=== PATIENT | male | born 1955 | race Native Hawaiian/Other Pacific Islander ===

== ENCOUNTER 2022-01-15 20:30 | Emergency (ER) | payer OTHER ==
[~2022-01-15] VITALS: Ht 180.3 cm; Wt 93.0 kg
[2022-01-15 21:07] VITALS: TEMP 100.3
[2022-01-15 21:33] LABS: POTASSIUM 4.2 mmol/L (3.6-5.2)
[2022-01-15 21:42] LABS: PLATELET COUNT 166 K/uL (142-355)
[2022-01-16 00:35] VITALS: BP 118/48
[2022-01-16] MEDS ORDERED: ELIQUIS5 MG PO (10:34)
[2022-01-16] MEDS ORDERED: DIVALPROEX500 M1 PO (10:34)
[2022-01-16] MEDS ORDERED: NEURONTIN 100M100 MG PO (10:35)
[2022-01-16] MEDS ORDERED: HALO5INJ3 IM (10:37)
[2022-01-16] MEDS ORDERED: HALO5TAB10 PO (10:39)
[2022-01-16] MEDS ORDERED: ICOSAPENT ETHYL1 GM PO (10:40)
[2022-01-16] MEDS ORDERED: LIPITOR10 MG PO (10:41)
[2022-01-16] MEDS ORDERED: MAGNESIUM OXID400 M2 PO (10:44)
[2022-01-16] MEDS ORDERED: MULTIVITAMI1 PO (10:45)
[2022-01-16] MEDS ORDERED: PANTOPRAZOLE 40MG TA PO (10:46)
[2022-01-16] MEDS ORDERED: QUETIAPINE300 MG PO (10:46)
[2022-01-16] MEDS ORDERED: TAMSULOSIN0.4 MG PO (10:47)
== END 2022-01-16 00:35 | disposition still patient (30) ==
LOC: ED 20:30
PROVIDERS: Family Medicine
DX: R46.89 Other symptoms and signs involving appearance and behavior (principal); N18.9 Chronic kidney disease, unspecified; Z11.52 Encounter for screening for COVID-19; Z20.822 Contact with and (suspected) exposure to COVID-19
CPT/HCPCS: 80053; 85027; 87635; 93005; 96360; 96365; 96372; 99284; J0696; J1630; U0003